=== PATIENT | male | born 1980 | race Hispanic/Latino ===

== ENCOUNTER 2020-07-25 19:31 | Emergency (ER) | payer OTHER ==
[2020-07-25] MEDS ORDERED: SODIUM CHLORIDE 0.9% 1000ML 1,000 ML IV ONE (21:01)
[2020-07-25 21:14] LABS: BASOPHILS % (AUTO) 0.1 % (0.0-5.0); EOSINOPHILS % (AUTO) 1.6 % (0.0-8.0); HEMATOCRIT 48.4 % (42-54); LYMPHOCYTES % (AUTO) 8.6 % (21.0-51.0); MEAN CORPUSCULAR HEMOGLOBIN 29.9 pg (27.0-33.0); MEAN CORPUSCULAR HGB CONC 33.7 g/dL (32.0-36.0); MEAN CORPUSCULAR VOLUME 88.8 fL (79-99); MONOCYTES % (AUTO) 5.5 % (3.0-13.0); NEUTROPHILS % (AUTO) 83.9 % (40.0-77.0); PLATELET COUNT (AUTO) 173 K/uL (130-400); RED BLOOD CELL COUNT(AUTO) 5.45 MIL/uL (4.50-6.20); RED CELL DISTRIBUTION WIDTH 13.2 % (11.0-15.5); WHITE BLOOD COUNT (AUTO) 9.9 K/uL (4.8-10.8)
[2020-07-25 21:17] LABS: APPEARANCE,URINE Clear (CLEAR); BILIRUBIN,URINE Negative (NEGATIVE); COLOR,URINE Yellow (YELLOW); GLUCOSE, URINE (UA) Negative (NEGATIVE); KETONES,URINE Trace mg/dL (NEGATIVE); LEUKOCYTE ESTERASE ,URINE Negative (NEGATIVE); NITRATE,URINE Negative (NEGATIVE); OCCULT BLOOD,URINE Trace (NEGATIVE); PH,URINE 5.5 (5.0-8.0); PROTEIN,URINE Trace mg/dL (NEGATIVE); UROBILINOGEN,URINE 0.2 mg/dL (0.2-1.0)
[2020-07-25 21:24] LABS: AMPHET/METH SCREEN,URINE NEGATIVE (NEGATIVE); BARBITURATE SCREEN, URINE NEGATIVE (NEGATIVE); BENZODIAZEPINES SCREEN,URINE NEGATIVE (NEGATIVE); CANNABINOID SCREEN,URINE NEGATIVE (NEGATIVE); COCAINE SCREEN,URINE NEGATIVE (NEGATIVE); OPIATE SCREEN,URINE NEGATIVE (NEGATIVE); PHENCYCLIDINE SCREEN,URINE NEGATIVE (NEGATIVE)
[2020-07-25 21:29] LABS: INR 1.07 (0.85-1.15); POTASSIUM 3.4 mmol/L (3.5-5.1); PROTHROMBIN TIME 11.6 SEC (9.6-11.6)
[2020-07-25] MEDS ORDERED: CEFTRIAXONE SODIUM 2 GM VIAL ONE (21:29)
[2020-07-25] MEDS ORDERED: SODIUM CHLORIDE 0.9% 50 ML IV ONE (21:30)
[2020-07-25 21:31] LABS: PARTIAL THROMBOPLASTIN TIME 29.3 SEC (26.3-35.5)
[2020-07-25 21:32] LABS: BACTERIA,URINE Rare /HPF (None Seen); WBC,URINE 0-1 /HPF (0-1)
[2020-07-25 21:33] LABS: BILIRUBIN,TOTAL 1.2 mg/dL (0.2-1.0); MUCUS,URINE Few LPF (None Seen); SQUAMOUS EPITHELIAL CELL,UR Rare /HPF (0-2); TOTAL PROTEIN, SERUM 8.1 g/dL (6.0-8.3)
[2020-07-25] MEDS ORDERED: DiphenhydrAMINE HCL 50 MG/ML VIAL ONE (22:15)
[2020-07-25] MEDS ORDERED: KETOROLAC TROMETHAMINE 15MG/ML ONE (22:16)
[2020-07-25] MEDS ORDERED: PROCHLORPERAZINE EDISYLATE 10 MG/2 ML VIAL ONE (22:16)
[2020-07-26] MEDS ORDERED: AZITHROMYCIN 250 MG TABLET PO ONE (01:28)
== END 2020-07-26 01:45 | disposition home or self-care (01) ==
LOC: EDH 19:31
DX: J20.9 Acute bronchitis, unspecified (principal); G44.229 Chronic tension-type headache, not intractable; Z20.822 Contact with and (suspected) exposure to COVID-19; E07.9 Disorder of thyroid, unspecified
CPT/HCPCS: 36415; 70450; 71045; 80053; 80305; 81001; 83605; 84484; 85025; 85610; 85730; 87040; 87426; 87804 ×2; 96365; 96375 ×2; 99285; J0696; J0780; J1200; J1885; J7030; U0003; 96374

== ENCOUNTER 2021-02-18 07:16 | Emergency (ER) | payer OTHER ==
[~2021-02-18] VITALS: Ht 157.5 cm; Wt 83.9 kg
[2021-02-18 07:32] VITALS: BP 140/87
[2021-02-18] MEDS ORDERED: KETOROLAC 30MG VIAL (30MG/ML) IVP SCH (08:00)
[2021-02-18] MEDS ORDERED: LACTATED RINGERS 1000ML 1,000 ML IV SCH (08:00)
[2021-02-18 08:20] LABS: BASOPHILS % (AUTO) 0.5 % (0.0-5.0); EOSINOPHILS % (AUTO) 1.2 % (0.0-8.0); HEMATOCRIT 47.3 % (42-54); LYMPHOCYTES % (AUTO) 17.5 % (21.0-51.0); MEAN CORPUSCULAR HEMOGLOBIN 29.9 pg (27.0-33.0); MEAN CORPUSCULAR HGB CONC 34.2 g/dL (32.0-36.0); MEAN CORPUSCULAR VOLUME 87.3 fL (79-99); MONOCYTES % (AUTO) 6.2 % (3.0-13.0); NEUTROPHILS % (AUTO) 74.2 % (40.0-77.0); PLATELET COUNT (AUTO) 205 K/uL (130-400); RED BLOOD CELL COUNT(AUTO) 5.42 MIL/uL (4.50-6.20); RED CELL DISTRIBUTION WIDTH 13.6 % (11.0-15.5); WHITE BLOOD COUNT (AUTO) 8.4 K/uL (4.8-10.8)
[2021-02-18 08:43] LABS: ALBUMIN 3.9 g/dL (3.5-5.0); BILIRUBIN,TOTAL 1.1 mg/dL (0.2-1.0); TOTAL PROTEIN, SERUM 7.9 g/dL (6.0-8.3)
[2021-02-18 09:00] LABS: APPEARANCE,URINE Clear (CLEAR); BILIRUBIN,URINE Negative (NEGATIVE); COLOR,URINE Yellow (YELLOW); GLUCOSE, URINE (UA) Negative (NEGATIVE); KETONES,URINE Negative (NEGATIVE); LEUKOCYTE ESTERASE ,URINE Negative (NEGATIVE); NITRATE,URINE Negative (NEGATIVE); OCCULT BLOOD,URINE Large (NEGATIVE); PH,URINE 6.5 (5.0-8.0); PROTEIN,URINE Trace mg/dL (NEGATIVE)
[2021-02-18] MEDS ORDERED: ONDANSETRON 4MG INJ IVP SCH (09:30)
[2021-02-18] MEDS ORDERED: MORPHINE 4 MG SYG IV SCH (09:30)
[2021-02-18 10:00] LABS: BACTERIA,URINE Few /HPF (None Seen); WBC,URINE None Seen /HPF (0-1)
[2021-02-18 10:01] LABS: SQUAMOUS EPITHELIAL CELL,UR None Seen /HPF (0-2)
[2021-02-18] MEDS ORDERED: IBUP-2070 PO (10:46)
[2021-02-18] MEDS ORDERED: HYDR-4060 PO (10:46)
== END 2021-02-18 11:42 | disposition home or self-care (01) ==
LOC: EDH 07:16
DX: N23 Unspecified renal colic (principal); Z79.1 Long term (current) use of non-steroidal anti-inflammatories (NSAID); Z79.899 Other long term (current) drug therapy; Z87.442 Personal history of urinary calculi
CPT/HCPCS: 36415; 74176; 80053; 81001; 85025; 96361 ×2; 96374; 99284; J1885; J7120

== ENCOUNTER 2023-06-12 08:50 | Emergency (ER) | payer MEDICAID ==
[~2023-06-12] VITALS: Ht 157.5 cm; Wt 81.6 kg
[~2023-06-12 08:50] MED LIST: IBUP-2070 PO
[2023-06-12 09:43] LABS: RAPID GROUP A STREP negative (NEGATIVE); SARS-CoV-2, RNA, NAAT POSITIVE SARS CoV-2 (NEGATIVE)
[2023-06-12 10:00] LABS: INFLUENZA TYPE A Negative For Type A (NEGATIVE); INFLUENZA TYPE B Negative For Type B (NEGATIVE)
[2023-06-12] MEDS ORDERED: IBUPROFEN 600 MG TABLET PO ONE (10:30)
[2023-06-12] MEDS ORDERED: PREDNISONE 20 MG TABLET PO ONE (10:30)
[2023-06-12] MEDS ORDERED: FAMOTIDINE 20MG TAB PO ONE (10:30)
[2023-06-12] MEDS ORDERED: BROM118S48 PO (10:37)
[2023-06-12] MEDS ORDERED: PRED20TA3 PO (10:37)
[2023-06-12 10:52] VITALS: BP 141/89; PULSE 83; RESP 17; O2SAT 97
== END 2023-06-12 10:53 | disposition home or self-care (01) ==
LOC: EDH 08:50
DX: U07.1 COVID-19 (principal); E03.9 Hypothyroidism, unspecified; Z98.890 Other specified postprocedural states
CPT/HCPCS: 87635; 87804; 87880

== ENCOUNTER 2024-01-16 16:01 | Emergency (ER) | payer MEDICAID ==
[~2024-01-16] VITALS: Ht 157.5 cm; Wt 81.6 kg
[~2024-01-16 16:01] MED LIST changes: +BROM118S48 PO; +PRED20TA3 PO
[2024-01-16 16:52] LABS: INFLUENZA TYPE A Negative For Type A (NEGATIVE); INFLUENZA TYPE B Negative For Type B (NEGATIVE)
[2024-01-16 16:53] LABS: COVID19 (SARS ANTIGEN RAPID) PRESUMPTIVE NEGATIVE (NEGATIVE)
[2024-01-16] MEDS: KETOROLAC 15MG/ML VIAL (15MG/ML) IM ONE (18:11)
[2024-01-16 18:56] VITALS: BP 141/64; PULSE 86; RESP 16; O2SAT 100
== END 2024-01-16 18:15 | disposition home or self-care (01) ==
LOC: EDH 16:01
DX: B34.9 Viral infection, unspecified (principal); R52 Pain, unspecified; E03.9 Hypothyroidism, unspecified; Z20.822 Contact with and (suspected) exposure to COVID-19; Z79.899 Other long term (current) drug therapy; Z98.890 Other specified postprocedural states
CPT/HCPCS: 99283; 87426; 87804 ×2; 96372; J1885

== ENCOUNTER 2024-02-08 09:52 | Emergency (ER) | payer MEDICAID ==
[~2024-02-08] VITALS: Ht 157.5 cm; Wt 81.6 kg
[2024-02-08] MEDS: ketOROlac 15MG/ML VIAL (15MG/ML) IM ONE (10:35)
[2024-02-08 11:22] VITALS: BP 141/74; PULSE 84; RESP 18; TEMP 98.7; O2SAT 99
== END 2024-02-08 11:23 | disposition home or self-care (01) ==
LOC: EDH 09:52
DX: S76.811A Strain of other specified muscles, fascia and tendons at thigh level, right thigh, initial encounter (principal); Z79.52 Long term (current) use of systemic steroids; Z98.890 Other specified postprocedural states; X58.XXXA Exposure to other specified factors, initial encounter; Y93.89 Activity, other specified; Y92.89 Other specified places as the place of occurrence of the external cause; Y99.8 Other external cause status
CPT/HCPCS: 99284; 73502; 73552; 96372; J1885

== ENCOUNTER 2024-06-12 15:27 | Emergency (ER) | payer MEDICAID ==
[~2024-06-12] VITALS: Ht 157.5 cm; Wt 90.7 kg
[2024-06-12 15:32] VITALS: BP 156/92; PULSE 70; RESP 18; TEMP 97.6; O2SAT 97
--- NOTE | 2024-06-12 15:46 | ERN ---
ED Note History of Present Illness Stated Complaint: EYE ISSUE Chief Complaint: Eye Problems Time Seen by MD: 15:33 Dictation: PATIENT IS A 44-YEAR-OLD MALE STATES HE WAS WORKING ON A CAR WHEN HE HAD A PIECE OF WOOD DROP INTO HIS LEFT EYE PRIOR TO ARRIVAL. HE DENIES ANY VISION CHANGES STATES HE WEARS GLASSES HOWEVER THEY WERE NOT ON IT THE TIME OF THE INCIDENT. HIS TETANUS SHOT IS UP TO DATE. HE HAS NOT ATTEMPTED TO WASH OUT HIS EYE WITH WATER. Allergies: Coded Allergies: No Known Allergies (Unverified Allergy, Unknown, 02/18/21) Home Meds Active Scripts D-Methorphan Hb/P-Epd HCl/Bpm (Bromfed Dm Cough Syrup) 2 Mg-30 Mg-10 Mg/5 Ml Syrup, 5 ML PO Q6HPRN PRN for COUGH/COLD SYMPTOMS, #240 ML Prov:LISSETH COWAN CONSUMER EDUCATION SPECIALIST 06/12/23 Prednisone (Prednisone) 20 Mg Tablet, 2 TAB PO DAILY for 5 Days, #10 TAB 0 Refills Prov:LISSETH COWAN CONSUMER EDUCATION SPECIALIST 06/12/23 Ibuprofen (Ibuprofen) 600 Mg Tablet, 600 MG PO Q6H PRN for PAIN, #30 TAB Prov:JOE STANTON MD 02/18/21 Past Medical History Past Medical History: No Pertinent History Additional Past Medical Hx: KIDNEY STONES Surgical History: None Surgical History Other: LT LEG SX Family History: Negative Social History: Negative, Lives with family RN Note Reviewed/Agreed w/PFSH: Yes Review of System Dictation CONSTITUTIONAL: NEGATIVE EXCEPT FOR HPI HEAD/FACE: NEGATIVE EXCEPT FOR HPI EENT: NEGATIVE EXCEPT FOR HPI QUESTIONABLE FOREIGN BODY LEFT EYE RESPIRATORY: NEGATIVE EXCEPT FOR HPI GASTROINTESTINAL/ABDOMINAL: NEGATIVE EXCEPT FOR HPI GENITOURINARY: NEGATIVE EXCEPT FOR HPI MUSCULOSKELETAL: NEGATIVE EXCEPT FOR HPI INTEGUMENTARY: NEGATIVE EXCEPT FOR HPI NEUROLOGICAL/PSYCH: NEGATIVE EXCEPT FOR HPI HEMATOLOGIC/LYMPHATIC: NEGATIVE EXCEPT FOR HPI ALL SYSTEMS NEGATIVE, EXCEPT NOTED ABOVE. 13 POINT REVIEW OF SYSTEMS ASSESSED AND ALL NEGATIVE EXCEPT FOR ABOVE. Initial Vital Sign VS Vital Signs Date Time Temp Pulse Resp B/P (MAP) Pulse Ox O2 Delivery O2 Flow Rate FiO2 06/12/24 15:30 97.5 70 18 156/92 97 Room Air 0 06/12/24 15:32 21 Physical Exam Dictation VITAL SIGNS REVIEWED GENERAL APPEARANCE: ALERT, ORIENTED X 3, NO ACUTE DISTRESS, WELL DEVELOPED, NOURISHED. HEAD AND FACE: NON-TRAUMATIC. EYES: PERRL, LEFT CONJUNCTIVA INJECTED CONJUNCTIVAS, EYELID NO TRAUMA, ANTERIOR CHAMBER WITH ARCUS SENILIS. EOMS ARE INTACT NO VISUAL FIELD CUTS EARS: PINNAS INTACT AND NO SIGNS OF TRAUMA OR ERYTHEMA EAR CANALS CLEAR AND NO DISCHARGE TM NO ERYTHEMA NOSE: NO DISCHARGE, NO BLEEDING. OROPHARYNX: MOUTH NORMAL, TONGUE PINK, PHARYNX CLEAR,NO ERYTHEMA, TONSILS NO EXUDATES, NO ABSCESSES NOTED, MUCOUS M EMBRANE MOIST NECK: SUPPLE, NON-TENDER, NO THYROMEGALY, NO MASSES, NO JVD, NO BRUITS BREAST:DEFERRED CHEST:NO TENDERNESS, NO CREPITUS, NO PARADOXICAL MOVEMENT, NO RETRACTIONS LUNGS:CLEAR, WELL-VENTILATED, SYMMETRIC, NO RALES, NO WHEEZING, NO RHONCHI, NO STRIDOR, GOOD BREATH SOUNDS BILATERALLY HEART: REGULAR RATE, REGULAR RHYTHM, NO MURMUR, NO GALLOPS VASCULAR: NO PERIPHERAL EDEMA, ABDOMEN: SOFT, POSITIVE BOWEL SOUNDS, NONDISTENDED, NO GUARDING, NONTENDER, NO REBOUND, NO MASSES NO HEPATOMEGALY, NO SPLENOMEGALY, NO LEE'S SIGN, NO HERNIAS. RECTAL: DEFERRED GENITAL: DEFERRED NEUROLOGICAL: NORMAL SPEECH, MOTOR FUNCTION INTACT, SENSORY FUNCTION INTACT MUSCULOSKELETAL: NECK NONTENDER, FULL RANGE OF MOTION, BACK NONTENDER, FULL RANGE OF MOTION, EXTREMITIES: NONTENDER, FULL RANGE OF MOTION SKIN: COLOR PINK, DRY, NO TURGOR, NO RASH, NO LACERATIONS, NO ABRASIONS, NO CONTUSIONS. LYMPHATIC: DEFERRED Results (Laboratory/Radiology) Labs Reviewed?: Yes ED Course ED Course Orders Procedure Category Date Status Time Ibuprofen 800 Mg Tab PHA 06/12/24 Complete (Motrin) 16:00 Visual Acuity Test CPOE 06/12/24 Transmitted (Er) 15:35 Fluorescein Sodium PHA 06/12/24 In Process (Hnyro-U-Agnfh At) 16:00 Tetracaine Hcl PHA 06/12/24 In Process (Pontocaine 0.5% 16:00 Erythrocin 0.5% Ophth PHA 06/12/24 Complete Oint (Erythrocin 0 16:00 Current Medications Medications (Trade) Dose Ordered Sig/Cole Route PRN Reason Start Time Stop Time Status Last Admin Dose Admin Erythromycin (Erythrocin 0.5% Ophth Oint) 1 appl ONCE ONCE OU 06/12/24 16:00 06/12/24 16:01 DC 06/12/24 16:00 Fluorescein Sodium (Gucwd-V-Zcflq At) 1 strip ONCE OP 06/12/24 16:00 07/12/24 15:59 06/12/24 16:00 Ibuprofen (moTRIN) 800 mg ONCE ONCE PO 06/12/24 16:00 06/12/24 16:01 DC 06/12/24 16:00 Tetracaine HCl (Pontocaine 0.5% Ophth Soln) 2 drop ONCE OP 06/12/24 16:00 07/12/24 15:59 06/12/24 16:00 Vital Signs Date Time Temp Pulse Resp B/P (MAP) Pulse Ox O2 Delivery O2 Flow Rate FiO2 06/12/24 15:32 97.5 70 18 156/92 97 Room Air* 0 21 06/12/24 15:30 97.5 70 18 156/92 97 Room Air 0 1610/FOREIGN BODY TO LEFT EYE REMOVED WITH EYE EXAM. NO CORNEAL ABRASION OR LACERATION VISUAL ACUITY TO BE DOCUMENTED BY ERYN ALEXANDRA PATIENT TOLERATED Medical Decision Making MDM MEDICAL DISCHARGE MAKING BASED ON EYE EXAMINED VISUAL ACUITY LEFT EYE FOREIGN BODY WAS REMOVED WITH EYE EXAM CORNEA IS INTACT 1ST DOSE OF ANTIBIOTIC OINTMENT PLACED TO CONJUNCTIVAL SAC PATIENT WILL BE REFERRED TO [facility] OPHTHALMOLOGY ALSO INSTRUCTED TO WEAR SAFETY GLASSES WORKING WITH ANY VEHICLES Procedure Procedure Dictation: 1600/EXPLAINED PROCEDURE TO PATIENT HE AGREED TO PROCEED. TWO DROPS TETRACAINE TO THE LEFT EYE I EXAMINED WITH BLACK LAMP TO INCLUDE LID EVERSION UPPER LID CORNEA IS INTACT PATIENT HAD SMALL FOREIGN BODY TO CONJUNCTIVAL SAC REMOVED WITH COTTON TIP SWAB HALF-INCH RIBBON OF ERYTHROMYCIN OPHTHALMIC OINTMENT PLACED IN LEFT EYE PATIENT TOLERATED WELL DX & DISP Disposition: Discharge Departure Impression: Primary Impression: Foreign body of left eye Condition: Stable Scripts Erythromycin Base (Erythromycin) 5 Mg/Gram (0.5 %) Oint...g. 1 APPL OP AD, #5 GM 0 Refills half-inch ribbon to left conjunctival sac every 4 hours for the next seven days. Prov: CATHERINE ROSEN SYSTEMS PROTECTION TECHNICIAN 06/12/24 Acetaminophen with Codeine (Acetaminophen-Cod #3 Tablet) 300 Mg-30 Mg Tablet 1 TAB PO Q4H PRN for MODERATE TO SEVERE PAIN, #15 TAB 0 Refills Prov: CATHERINE ROSEN SYSTEMS PROTECTION TECHNICIAN 06/12/24 Additional Instructions: Follow-up with primary care provider in 1 to 2 days. Take medications as direct ed here in the emergency room. Okay to continue home medications unless otherwise discussed during your visit in the emergency room today. Return to your nearest emergency room if symptoms worsen or if there is no improvement. Call 911 if you need immediate assistance. Take Tylenol or Motrin [id number] as needed and if no contraindications are present. Increase oral hydration. A wound culture or urine culture was ordered here in the emergency room department please follow-up with primary care provider and advise them to get repeat ports from our facility. If you had any Santana wrap/splints that were applied here, please do not remove them until you see your primary care or specialty. Use erythromycin ointment as directed until left eye for the next seven days. Suggest wearing protective lenses or goggles when working on heavy equipment or outside. Call [facility] for an appointment in the next 2-3 days, see the yellow pages for phone number. Referrals: NONE (PCP) Time of Disposition: 16:11 I have reviewed the case, and I agree with, Diagnosis and Plan CATHERINE ROSEN NP Jun 12, 2024 15:46
[2024-06-12] MEDS: ibuPROFEN 800 MG TAB PO ONE (16:00)
[2024-06-12] MEDS: TETRACAINE HCL 0.5% 4 ML OPHTH SOLN OP SCH (16:00)
[2024-06-12] MEDS: FLUORESCEIN SODIUM 1 STRIP STRIP OP SCH (16:00)
[2024-06-12] MEDS: ERYTHROMYCIN BASE 0.5% OPHTH OINT 1 GM TUBE OU ONE (16:00)
[2024-06-12] MEDS ORDERED: ACET-2079 PO (16:14)
[2024-06-12] MEDS ORDERED: ERYT1OIN7 OP (16:14)
== END 2024-06-12 16:18 | disposition home or self-care (01) ==
LOC: EDH 15:27
DX: T15.92XA Foreign body on external eye, part unspecified, left eye, initial encounter (principal); Z79.52 Long term (current) use of systemic steroids; X58.XXXA Exposure to other specified factors, initial encounter
CPT/HCPCS: 65220; 99283; 99284